=== PATIENT | female | born 1980 | race Caucasian/White ===

== ENCOUNTER 2018-02-02 09:16 | Emergency (ER) | payer OTHER ==
[2018-02-02 09:26] VITALS: BMI 34.7
--- NOTE | 2018-02-02 09:37 | PDOC ---
History of Present Illness - General Chief Complaint: Vaginal Bleeding Stated Complaint: VAGINAL BLEEDING (6 WKS ) Time Seen by Provider: 02/02/18 09:31 History Source: Patient Exam Limitations: Language Barrier - History of Present Illness Initial Comments: 02/02/18 10:07 37 year old yi speaking female A1, GA 6 weeks and 3 , presented to the ED with 2 days history of vaginal bleeding. she notice some bloody streak first time yesterday when she was cleaning herself, today morning when she pass urine she noticed blood mixed with urine, redish color with one clot. Patient denies any active bleeding at the moment. Patient states that she was unaware that she was until last week. She went to the doctor and had a positive test. Patient reports that her LMP was 12/18/17. Patient states she was not seen by an makeup instructor doctor yet. Patient denies any dysuria, flank pain, odor in urine, history of kidney stones, trauma to the uterus, recent intercourse or abnormal vaginal discharge. Patient denies any history of STI. Patient states she had one spontaneous at 4 week gestation. Previous pregnancies were without any complications. Patient reports one prior c -section. Patient denies f/c/, she reported nausea but denied vomiting. Patient denies lightheadedness or dizziness, headache, but she reports generalized fatigue. Denies chest pain, SOB, palpitations, abdominal pain, diarrhea, constipation, leg swelling. Pmhx: Denies Pshx: 1 , umbilical hernia repair Allergy: NKDA Meds: vitamins, iron Sohx: denies tobacco use, alcohol or drug use Fhx: DM Vitals: Temp: 98.4F, DE: 112, BP: 164/91, RR: 16, O2 Sat: 100% Physical Exam: General: Well appearing, in NAD Head: AT/NC ENT: MMM, PERRL, EOMI, no septal deviation, no lesions or exudates in oropharynx Neck: no cervical lymphadenopathy, neck supple Heart: Tachycardic, no MRG Lungs: CTA B/L, no wheezes Abdomen: Gestation abdomen, soft, ND/NT, positive BS, old scar present in the lower abdomen Neuro: no focal deficits, CN II-XII grossly intact, normal speech Psych: normal mood and affect Ski: warm and dry Pelvic exam: closed cervical os with a 5mm spot of clot around the os, no vaginal discharge, no cervical motion tenderness Differential: * Normal * first trimester miscarriage * Ectopic * Kidney stone * UTI Workup: * CBC, CMp, UA, beta HCG, type and screen * will consider transvaginal US after beta HCG * IV NS 125 cc 02/02/18 15:06 US transvaginal: An intrauterine gestational sac is seen containing a yolk sac. The gestational sac diameter corresponds to an approximate gestational age of 5 weeks 0 days. No embryonic pole is identified at this time probably on the basis of early . Correlate with follow-up sonography. Patient is hemodynamically stable. She will follow up as outpatient with her OB/ Environmental Field Team Member. Patient also has the option to return to the ED to repeat beta HCG and transvaginal US on Tuesday. _ Past History - Past Medical History Allergies/Adverse Reactions: Allergies Allergy/AdvReac Type Severity Reaction Status Date / Time No Known Allergies Allergy Verified 02/02/18 09:21 Home Medications: Ambulatory Orders NK [No Known Home Medication] 02/02/18 COPD: No Other medical history: DENIES. - Suicide/Smoking/Psychosocial Hx Smoking History: Never smoked *Physical Exam - Vital Signs Last Vital Signs Temp Pulse Resp BP Pulse Ox 98.4 F 112 H 16 164/91 100 02/02/18 09:22 02/02/18 09:22 02/02/18 09:22 02/02/18 09:22 02/02/18 09:22 ED Treatment Course - LABORATORY CBC & Chemistry Diagram: 02/02/18 10:30 *DC/Admit/Observation/Transfer Diagnosis at time of Disposition: Normal in first trimester - Discharge Dispostion Disposition: HOME Admit: No Decision to Admit order Date/Time: Patient is hemodynamically stable. She will follow up as outpatient with her OB/ CAMERA SYSTEMS ENGINEER. Patient also has the option to return to the ED to repeat beta HCG and transvaginal US on Tuesday if she is unable to get an appointment with an OB/ CAMERA SYSTEMS ENGINEER for Tuesday. The plan was explained to the patient and patient understands and agrees with the plan. If symptoms worsen, please return to the emergency department immediately. 02/02/18 15:08 - Referrals - Patient Instructions - Post Discharge Activity
[2018-02-02 10:22] LABS: HCG,QUALITATIVE URINE POSITIVE
[2018-02-02 10:27] LABS: URINE APPEARANCE SLCLOUDY; URINE BILIRUBIN NEGATIVE (<2.0 mg/dL); URINE BLOOD 3+ (NEGATIVE); URINE COLOR YELLOW; URINE GLUCOSE (UA) NEGATIVE (NEGATIVE); URINE KETONE NEGATIVE (NEGATIVE); URINE LEUK ESTERASE NEGATIVE (NEGATIVE); URINE NITRITE NEGATIVE (NEGATIVE); URINE PROTEIN NEGATIVE (NEGATIVE); URINE UROBILINOGEN NEGATIVE mg/dL (0.2-1.0)
[2018-02-02 10:51] LABS: EPI CELLS MODERATE /HPF (FEW); URINE MUCUS RARE
[2018-02-02 10:58] LABS: BASO % 0.7 % (0-2.0); EOS % 0.7 % (0-4.5); HEMATOCRIT 39.7 % (32.4-45.2); HEMOGLOBIN 13.3 GM/dL (10.7-15.3); LYMPH % 32.4 % (8-40); MCHC 33.4 g/dl (32.0-36.0); MEAN CELL VOLUME 86.8 fl (80-96); MEAN PLT VOLUME 8.1 fl (7.5-11.1); MONO % 3.9 % (3.8-10.2); NEUT % 62.3 % (42.8-82.8); PLATELET COUNT 256 K/MM3 (134-434); RBC 4.58 M/mm3 (3.60-5.2); RDW 13.8 % (11.6-15.6); WHITE BLOOD COUNT 6.5 K/mm3 (4.0-10.0)
[2018-02-02] MEDS ORDERED: SODIUM CHLORIDE 1,000 ML IV SCH (11:00)
[2018-02-02 11:37] LABS: INR 0.99 (0.82-1.09); PROTHROMBIN TIME (PATIENT) 11.2 SEC (9.98-11.88)
--- NOTE | 2018-02-02 11:39 | PDOC ---
Attending Attestation - Resident Resident Name: Tobin Barnes - ED Attending Attestation I have performed the following: I have examined & evaluated the patient, The case was reviewed & discussed with the resident, I agree w/resident's findings & plan, Exceptions are as noted - HPI HPI: 02/02/18 11:31 37-year-old LMP about 6 weeks with positive test at clinic last week presents now with 2 episodes of vaginal bleeding over the last 2 days. Patient reports blood on toilet paper after urinating each morning yesterday and today, today with small clots. No cramping, no passage of tissue, no dysuria /frequency/urgency, no fevers or chills. - Physicial Exam PE: 02/02/18 11:39 Vital signs normal. Heart rate improved at 90 lying in stretcher. Abdomen benign. Os closed with minimal blood in vault per resident - Medical Decision Making 02/02/18 11:39 Patient seen and evaluated with the resident. I agree with the overall evaluation, assessment, and management with the following summary of visit: 37-year-old female with first trimester vaginal bleeding, early versus threatened miscarriage versus ectopic. Rh, hCG, urinalysis Transvaginal ultrasound Reassess, including repeat BP 02/02/18 14:50 gest sac, yolk sac, but no pole identified. ? early preg given hcg 4000s. rh+ no further bleeding. will arrange prompt OB f/u or return to ED for repeat hcg and sono
[2018-02-02 15:46] VITALS: BP 130/72; PULSE 92; TEMP 98.5
== END 2018-02-02 16:32 | disposition home or self-care (01) ==
LOC: EDBD 09:16 → JER 09:16
PROC: 3E0337Z Introduction of Electrolytic and Water Balance Substance into Peripheral Vein, Percutaneous Approach (ICD-10-PCS; principal; 2018-02-02)
DX: O26.891 Other specified pregnancy related conditions, first trimester (principal); O20.8 Other hemorrhage in early pregnancy; Z3A.01 Less than 8 weeks gestation of pregnancy
CPT/HCPCS: 36415; 76817-TC; 81003; 81015; 84702; 84703; 85025; 85610; 86850; 86900; 86901; 99282-25; J7030

== ENCOUNTER 2018-03-28 07:43 | Emergency (ER) | payer OTHER ==
[2018-03-28] MEDS ORDERED: SODIUM CHLORIDE 1,000 ML IV STA (08:16)
[2018-03-28 08:19] VITALS: TEMP 99; BMI 41.1
--- NOTE | 2018-03-28 08:30 | PDOC ---
History of Present Illness - General Chief Complaint: Vaginal Bleeding Stated Complaint: VAGINAL BLEED Time Seen by Provider: 03/28/18 07:53 History Source: Patient - History of Present Illness Timing/Duration: reports: getting worse Past History - Past Medical History Allergies/Adverse Reactions: Allergies Allergy/AdvReac Type Severity Reaction Status Date / Time No Known Allergies Allergy Verified 03/28/18 08:15 Home Medications: Ambulatory Orders 54/Iron/Folic AC/Omg3 [Pr Nanci 430 Combo Pack] 1 each PO DAILY #30 combo..pkg 02/02/18 COPD: No - Suicide/Smoking/Psychosocial Hx Smoking History: Never smoked Review of Systems - Review of Systems Constitutional: No: Chills, Fever ABD/GI: No: Nausea, Vomiting, Abdominal cramping : No: Dysuria *Physical Exam - Physical Exam General Appearance: Yes: Appropriately Dressed. No: Apparent Distress HEENT: positive: Normal Voice Neck: positive: Supple Respiratory/Chest: negative: Respiratory Distress Female Pelvic Exam: positive: vaginal bleeding, other (significant vaginal bleeding w/ large clots, unable to palpate os) Gastrointestinal/Abdominal: positive: Soft. negative: Tender Musculoskeletal: negative: CVA Tenderness Integumentary: positive: Dry, Warm Neurologic: positive: Fully Oriented, Alert, Normal Mood/Affect ED Treatment Course - LABORATORY CBC & Chemistry Diagram: 03/28/18 14:17 03/28/18 09:00 - RADIOLOGY Radiology Studies Ordered: Category Date Time Status TRANSVAGINAL US PREG [US] Stat Ultrasound 03/28/18 08:16 Ordered Medical Decision Making - Medical Decision Making 03/28/18 08:17 37 yo F, (s/p 1 spon ab), ~13 weeks , here w/ sudden onset severe vaginal bleeding this am. No clots, abd pain, dysuria, n/v See exam Strong suspicion for spon AB Tachy to 120 w/ significant vag bleed w/ multiple large clots in vault, unable to palpate Os S/p US here 02/02 w/ IUP @ 5 weeks w/ beta 4608 -IVF -beta -UA -labs -US 03/28/18 12:55 UA without signs of infection with beta over 37,000. Ultrasound demonstrates approximately 14 weeks fetus with cardiac activity. Repeat heart rate after fluids normalized. Dr. Max contacted and now at bedside 03/28/18 13:[address] Max man who states it appears that patient's vag bleed has currently resolved and that he was able to feel a closed Os. Recommend repeat CBC and if stable and bleeding ceases, can be discharged to follow-up with her OB this week 03/28/18 15:09 03/28/18 15:16 Pt's hemoglobin stable upon rpt. Upon reassessment, no bleeding at this time and is stable. Patient feels well enough to be discharged. Told to follow up with OB this week and to return to ER if symptoms worsen 03/28/18 15:18 *DC/Admit/Observation/Transfer Diagnosis at time of Disposition: Threatened - Discharge Dispostion Disposition: HOME Condition at time of disposition: Improved - Referrals - Patient Instructions Printed Discharge Instructions: DI for Threatened Additional Instructions: Beebe ultrasonido muestra que beebe feto tiene aproximadamente 14 semanas con actividad cardaca. Tu beta superaba los 37,000 hoy. Tu helen y tu orina fozia normales. Usted fue visto por un gineclogo, el Dr. Mansoor calderon, quien lo evalu y le recomend que, dado que la hemorragia mejor, puede ser dado de ammy para realizar un seguimiento con beebe OB esta semana. Existe la posibilidad de que sufra un aborto espontneo si contina sangrando y si el nivel de la hormona en la helen disminuye. Debe llamar a beebe OB hoy mismo para programar pineda linda y ser visto esta semana para pineda evaluacin repetida Mientras tanto, la recomendacin es para descansar un poco, tiffany est aziza levantarse y caminar y hacer la mayora de leo actividades habituales, tiffany sin relaciones sexuales, esfuerzo fsico, actividad vigorosa o levantar objetos pesados hasta que anjel beebe OB. Regrese a la jacquie de emergencias si los sntomas empeoran Print Language: [id number] - Post Discharge Activity
[2018-03-28 09:19] VITALS: PULSE 90
[2018-03-28 09:22] LABS: BASO % 0.2 % (0-2.0); EOS % 0.4 % (0-4.5); HEMATOCRIT 34.5 % (32.4-45.2); HEMOGLOBIN 11.6 GM/dL (10.7-15.3); LYMPH % 17.9 % (8-40); MCH 29.2 pg (25.7-33.7); MCHC 33.8 g/dl (32.0-36.0); MEAN CELL VOLUME 86.5 fl (80-96); MEAN PLT VOLUME 8.3 fl (7.5-11.1); MONO % 5.2 % (3.8-10.2); NEUT % 76.3 % (42.8-82.8); PLATELET COUNT 237 K/MM3 (134-434); RBC 3.99 M/mm3 (3.60-5.2); RDW 13.9 % (11.6-15.6); WHITE BLOOD COUNT 7.3 K/mm3 (4.0-10.0)
[2018-03-28 09:33] LABS: ALBUMIN 3.4 g/dl (3.4-5.0); ANION GAP 7 (8-16); BILIRUBIN,TOTAL 0.3 mg/dL (0.2-1.0); BLOOD UREA NITROGEN 7 mg/dL (7-18); CALCIUM 8.2 mg/dL (8.5-10.1); CHLORIDE 109 mmol/L (98-107); CO2 24 mmol/L (21-32); CREATININE 0.6 mg/dL (0.55-1.02); GLUCOSE,RANDOM 112 mg/dL (74-106); POTASSIUM 3.8 mmol/L (3.5-5.1); SGOT/AST 16 U/L (15-37); SGPT/ALT 20 U/L (12-78); SODIUM 140 mmol/L (136-145); TOT PROT 6.9 g/dl (6.4-8.2)
[2018-03-28 09:41] LABS: URINE APPEARANCE CLOUDY; URINE BILIRUBIN NEGATIVE (<2.0 mg/dL); URINE BLOOD 3+ (NEGATIVE); URINE COLOR RED; URINE GLUCOSE (UA) 1+ (NEGATIVE); URINE KETONE TRACE (NEGATIVE); URINE LEUK ESTERASE NEGATIVE (NEGATIVE); URINE NITRITE NEGATIVE (NEGATIVE); URINE UROBILINOGEN NEGATIVE mg/dL (0.2-1.0)
[2018-03-28 09:50] LABS: URINE PROTEIN 2+ (NEGATIVE)
[2018-03-28 09:50] LABS: ALK PHOS 58 U/L (45-117)
[2018-03-28 09:52] LABS: INR 1.02 (0.82-1.09); PROTHROMBIN TIME (PATIENT) 11.5 SEC (9.7-13.0)
[2018-03-28 09:55] LABS: URINE MUCUS RARE
[2018-03-28 12:31] VITALS: BP 121/39
[2018-03-28 14:23] LABS: BASO % 0.5 % (0-2.0); EOS % 0.2 % (0-4.5); HEMATOCRIT 31.1 % (32.4-45.2); HEMOGLOBIN 10.6 GM/dL (10.7-15.3); LYMPH % 24.2 % (8-40); MCH 29.2 pg (25.7-33.7); MCHC 33.9 g/dl (32.0-36.0); MEAN CELL VOLUME 86.2 fl (80-96); MEAN PLT VOLUME 7.9 fl (7.5-11.1); MONO % 5.4 % (3.8-10.2); NEUT % 69.7 % (42.8-82.8); PLATELET COUNT 247 K/MM3 (134-434); RBC 3.61 M/mm3 (3.60-5.2); WHITE BLOOD COUNT 6.1 K/mm3 (4.0-10.0)
== END 2018-03-28 15:40 | disposition home or self-care (01) ==
LOC: JER 07:43
PROC: 3E0337Z Introduction of Electrolytic and Water Balance Substance into Peripheral Vein, Percutaneous Approach (ICD-10-PCS; principal; 2018-03-28)
DX: O26.892 Other specified pregnancy related conditions, second trimester (principal); O20.0 Threatened abortion; Z3A.14 14 weeks gestation of pregnancy
CPT/HCPCS: 36415; 76815-TC; 76817-TC; 80053; 81003; 81015; 84702; 85025; 85610; 86850; 86900; 86901; 96360; 99283-25; J7030

== ENCOUNTER 2018-04-04 16:04 | Emergency (ER) | payer OTHER ==
[2018-04-04 16:11] VITALS: BP 142/79; PULSE 110; TEMP 98; BMI 40.4
--- NOTE | 2018-04-04 16:12 | PDOC ---
Rapid Medical Evaluation Time Seen by Provider: 04/04/18 16:06 Medical Evaluation: Allergies Allergy/AdvReac Type Severity Reaction Status Date / Time No Known Allergies Allergy Verified 03/28/18 08:15 04/04/18 16:09 Pt. a 37 y/o F with 8 days of vaginal bleeding. Pt. evaluated one week ago in our ED for similar complaints. States that the bleeding has not stopped over the past 8 days. States that she has a fair amount of bleeding. Type and screen from last visit O positive. Exam: ambulatory, NAD. Orders, CBC, CMP, beta hcg, pt/inr, US
[2018-04-04 17:48] LABS: BASO % 0.3 % (0-2.0); EOS % 0.2 % (0-4.5); HEMOGLOBIN 11.5 GM/dL (10.7-15.3); LYMPH % 17.5 % (8-40); MCH 29.5 pg (25.7-33.7); MCHC 33.9 g/dl (32.0-36.0); MEAN CELL VOLUME 86.8 fl (80-96); MEAN PLT VOLUME 8.4 fl (7.5-11.1); MONO % 4.8 % (3.8-10.2); NEUT % 77.2 % (42.8-82.8); PLATELET COUNT 279 K/MM3 (134-434); RBC 3.92 M/mm3 (3.60-5.2); RDW 14.1 % (11.6-15.6); WHITE BLOOD COUNT 9.4 K/mm3 (4.0-10.0)
[2018-04-04 17:50] LABS: URINE APPEARANCE SLCLOUDY; URINE BILIRUBIN NEGATIVE (<2.0 mg/dL); URINE COLOR YELLOW; URINE GLUCOSE (UA) NEGATIVE (NEGATIVE); URINE KETONE 2+ (NEGATIVE); URINE NITRITE NEGATIVE (NEGATIVE); URINE UROBILINOGEN NEGATIVE mg/dL (0.2-1.0)
[2018-04-04 17:52] LABS: URINE LEUK ESTERASE 2+ (NEGATIVE); URINE PROTEIN 1+ (NEGATIVE)
[2018-04-04 17:54] LABS: EPI CELLS MODERATE /HPF (FEW); URINE MUCUS RARE
[2018-04-04 18:14] LABS: ALBUMIN 3.5 g/dl (3.4-5.0); ALK PHOS 73 U/L (45-117); ANION GAP 8 (8-16); BILIRUBIN,TOTAL 0.2 mg/dL (0.2-1.0); BLOOD UREA NITROGEN 5 mg/dL (7-18); CALCIUM 8.6 mg/dL (8.5-10.1); CHLORIDE 108 mmol/L (98-107); CO2 22 mmol/L (21-32); CREATININE 0.5 mg/dL (0.55-1.02); GLUCOSE,RANDOM 83 mg/dL (74-106); POTASSIUM 3.7 mmol/L (3.5-5.1); SGOT/AST 18 U/L (15-37); SGPT/ALT 23 U/L (12-78); SODIUM 138 mmol/L (136-145); TOT PROT 7.8 g/dl (6.4-8.2)
--- NOTE | 2018-04-04 21:48 | PDOC ---
History of Present Illness - General History Source: Patient Exam Limitations: No Limitations <Cary Hahn - Last Filed: 04/04/18 23:34> - History of Present Illness Initial Comments: 04/04/18 23:47 Patient is a 37 year old Luxembourger-speaking female , who presents with 1 week of vaginal bleeding. She states that her vaginal bleeding was very heavy last Tuesday, but she states that it has since lessened and there is some spotting when she wipes. She also admits to some lower abdominal pressure. Scant blood in vaginal vault, No heavy active bleeding, Cervical Os closed. OB: Vandana Ridley ([address]) <Mile Groves - Last Filed: 04/04/18 23:52> - General Chief Complaint: Vaginal Bleeding Stated Complaint: VAGINAL BLEEDING (15 WKS ) Time Seen by Provider: 04/04/18 16:06 Past History - Past Medical History COPD: No DVT: No - Reproductive History (#): 5 Para: 5 - Suicide/Smoking/Psychosocial Hx Smoking History: Never smoked Have you smoked in the past 12 months: No Information on smoking cessation initiated: No Hx Alcohol Use: No Drug/Substance Use Hx: No Substance Use Type: None <Cary Hahn - Last Filed: 04/04/18 23:34> <Mile Groves - Last Filed: 04/04/18 23:52> - Past Medical History Allergies/Adverse Reactions: Allergies Allergy/AdvReac Type Severity Reaction Status Date / Time No Known Allergies Allergy Verified 04/04/18 16:07 Home Medications: Ambulatory Orders 54/Iron/Folic AC/Omg3 [Pr Nanci 430 Combo Pack] 1 each PO DAILY #30 combo..pkg 02/02/18 Cephalexin [Keflex] 500 mg PO BID #10 capsule 04/04/18 Review of Systems - Review of Systems Comments:: GENERAL/CONSTITUTIONAL: No: fever, chills, weakness, loss of appetite. HEAD, EYES, EARS, NOSE AND THROAT: No: change in vision, ear pain, discharge, sore throat, throat swelling. CARDIOVASCULAR: No: chest pain, lightheadedness, palpitations, syncope RESPIRATORY: No: cough, shortness of breath, wheezing, hemoptysis, stridor. GASTROINTESTINAL: +mild lower abdominal pain No: nausea, vomiting, diarrhea, rectal bleeding, constipation. GENITOURINARY: No: dysuria, hematuria, frequency, urgency, flank pain. GYNECOLOGICAL: vaginal bleeding MUSCULOSKELETAL: No: back pain, neck pain, joint pain, muscle swelling or pain SKIN: No: lesions, pallor, rash or easy bruising. NEUROLOGIC: No: headache, vertigo, paresthesias, weakness ENDOCRINE: No: unexplained weight gain or loss HEMATOLOGIC/LYMPHATIC: No: anemia, easy bleeding, swelling nodes 04/04/18 23:50 <Mile Groves - Last Filed: 04/04/18 23:52> *Physical Exam - Vital Signs Last Vital Signs Temp Pulse Resp BP Pulse Ox 98.0 F 110 H 18 142/79 100 04/04/18 16:07 04/04/18 16:07 04/04/18 16:07 04/04/18 16:07 04/04/18 16:07 <Cary Hahn - Last Filed: 04/04/18 23:34> - Vital Signs Last Vital Signs Temp Pulse Resp BP Pulse Ox 98.0 F 110 H 18 142/79 100 04/04/18 16:07 04/04/18 16:07 04/04/18 16:07 04/04/18 16:07 04/04/18 16:07 - Physical Exam Comments: 04/04/18 23:50 GENERAL: The patient is in no acute distress. HEAD: Normal with no signs of trauma. EYES: PERRLA, EOMI, sclera anicteric, conjunctiva clear. ENT: Ears normal, nares patent, oropharynx clear without exudates. Moist mucous membranes. NECK: Normal range of motion, supple without lymphadenopathy, JVD, or masses. LUNGS: Breath sounds equal, clear to auscultation bilaterally. No wheezes, and no crackles. HEART:Regular rate and rhythm, normal S1 and S2 without murmur, rub or gallop. ABDOMEN: Soft, mild lower abdominal tenderness to palpation, normoactive bowel sounds. No guarding, no rebound. EXTREMITIES: Normal range of motion, no edema. No clubbing or cyanosis. No erythema, or tenderness. NEUROLOGICAL: Cranial nerves II through XII grossly intact. Normal speech. No focal neurological deficits. MUSCULOSKELETAL: Back nontender to palpation, no CVA tenderness SKIN: Warm, Dry, normal turgor, no rashes or lesions noted. Pelvic Exam: Scant blood in vaginal vault, No heavy active bleeding, Cervical Os closed. <Mile Groves - Last Filed: 04/04/18 23:52> ED Treatment Course - LABORATORY CBC & Chemistry Diagram: 04/04/18 17:26 04/04/18 17:26 - ADDITIONAL ORDERS Additional order review: Laboratory Results 04/04/18 04/04/18 04/04/18 17:40 17:28 17:26 Sodium 138 Potassium 3.7 Chloride 108 H Carbon Dioxide 22 Anion Gap 8 BUN 5 L Creatinine 0.5 L Creat Clearance w eGFR > 60 Random Glucose 83 Calcium 8.6 Total Bilirubin 0.2 D AST 18 ALT 23 Alkaline Phosphatase 73 Total Protein 7.8 Albumin 3.5 Beta HCG, Quant 43977.8 Urine Color Yellow Urine Appearance Slcloudy Urine pH 6.0 Ur Specific [place] 1.018 Urine Protein 1+ H Urine Glucose (UA) Negative Urine Ketones 2+ H Urine Blood 3+ H Urine Nitrite Negative Urine Bilirubin Negative Urine Urobilinogen Negative Ur Leukocyte Esterase 2+ H Urine WBC (Auto) 53 Urine RBC (Auto) 14 Ur Epithelial Cells Moderate Urine Mucus Rare 04/04/18 17:26 RBC 3.92 MCV 86.8 MCHC 33.9 RDW 14.1 MPV 8.4 Neutrophils % 77.2 Lymphocytes % 17.5 D Monocytes % 4.8 Eosinophils % 0.2 Basophils % 0.3 <Cary Hahn - Last Filed: 04/04/18 23:34> - LABORATORY CBC & Chemistry Diagram: 04/04/18 17:26 04/04/18 17:26 - ADDITIONAL ORDERS Additional order review: Laboratory Results 04/04/18 04/04/18 04/04/18 17:40 17:28 17:26 Sodium 138 Potassium 3.7 Chloride 108 H Carbon Dioxide 22 Anion Gap 8 BUN 5 L Creatinine 0.5 L Creat Clearance w eGFR > 60 Random Glucose 83 Calcium 8.6 Total Bilirubin 0.2 D AST 18 ALT 23 Alkaline Phosphatase 73 Total Protein 7.8 Albumin 3.5 Beta HCG, Quant 39230.8 Urine Color Yellow Urine Appearance Slcloudy Urine pH 6.0 Ur Specific [place] 1.018 Urine Protein 1+ H Urine Glucose (UA) Negative Urine Ketones 2+ H Urine Blood 3+ H Urine Nitrite Negative Urine Bilirubin Negative Urine Urobilinogen Negative Ur Leukocyte Esterase 2+ H Urine WBC (Auto) 53 Urine RBC (Auto) 14 Ur Epithelial Cells Moderate Urine Mucus Rare 04/04/18 17:26 RBC 3.92 MCV 86.8 MCHC 33.9 RDW 14.1 MPV 8.4 Neutrophils % 77.2 Lymphocytes % 17.5 D Monocytes % 4.8 Eosinophils % 0.2 Basophils % 0.3 <Mile Groves - Last Filed: 04/04/18 23:52> Medical Decision Making - Medical Decision Making Ms Tuesday is a 37 yo F LMP about 7 weeks with continued vaginal bleeding No cramping, no passage of tissue, no dysuria/frequency/urgency, no fevers or chills. 04/04/18 21:49 Laboratory Tests 03/28/18 03/28/18 04/04/18 09:00 14:17 17:26 WBC 6.1 9.4 D Hgb 10.6 L 11.5 Hct 31.1 L 34.0 Plt Count 247 279 BUN 7 Creatinine 0.6 Beta HCG, Quant 24921.0 Urine Blood Urine Nitrite Ur Leukocyte Esterase Urine WBC (Auto) Urine RBC (Auto) Ur Epithelial Cells Urine Mucus 04/04/18 04/04/18 04/04/18 17:26 17:28 17:40 WBC Hgb Hct Plt Count BUN 5 L Creatinine 0.5 L Beta HCG, Quant 21565.8 Urine Blood 3+ H Urine Nitrite Negative Ur Leukocyte Esterase 2+ H Urine WBC (Auto) 53 Urine RBC (Auto) 14 Ur Epithelial Cells Moderate Urine Mucus Rare 04/04/18 21:50 Hgb stable BHCG rising US ? (+) Pending US 04/04/18 23:35 Ultrasound demonstrates complete placenta previa. Patient's pelvic examination demonstrates no active heavy bleeding, no active bleeding from the os, there is scant blood noted in the vaginal vault. Patient has minimal lower abdominal tenderness to palpation. Case reviewed with Dr. Lopez. She recommends the following: Pelvic rest, no heavy lifting, bed rest, return to the emergency department for heavy bleeding-saturating 2 pads per hour for 2 hours. She will need to follow up with the clinic where she should have ultrasound every month. <Cary Hahn - Last Filed: 04/04/18 23:34> *DC/Admit/Observation/Transfer - Discharge Dispostion Decision to Admit order: No <Cary Hahn - Last Filed: 04/04/18 23:34> - Attestations Scribe Attestion: 04/04/18 23:52 Documentation prepared by Mile Groves, acting as biomedical engineering director for Cary Hahn MD. <Mile Groves - Last Filed: 04/04/18 23:52> Diagnosis at time of Disposition: Placenta previa Qualifiers: Trimester: second trimester Qualified Code(s): O44.02 - Complete placenta previa NOS or without hemorrhage, second trimester UTI (urinary tract infection) Qualifiers: Urinary tract infection type: acute cystitis Hematuria presence: without hematuria Qualified Code(s): N30.00 - Acute cystitis without hematuria - Discharge Dispostion Disposition: HOME Condition at time of disposition: Stable - Prescriptions Prescriptions: Cephalexin [Keflex] 500 mg PO BID #10 capsule - Referrals Referrals: Vandana Ridley MD [Primary Care Provider] - - Patient Instructions Printed Discharge Instructions: DI for Placenta Previa Additional Instructions: Ms Tuesday Dennis por venir a la jacquie de emergencia hoy se le aconseja evitar las relaciones sexuales hasta que sea aprobado por beebe obstetra SIN levantar objetos pesados, nada ms pesado que 5 libras Contina teniendo manchas, tiffany si nota sangrado PESADO (SATURANDO 2 ALMOHADILLAS / HORA x 2 HORAS) DEBE regresar a la jacquie de urgencias de inmediato Debe llamar a beebe obstetra por la maana para pineda linda URGENTE Tendr que ser seguido de cerca por ultrasonidos repetidos Thank you for coming in to the ER today you are advised to avoid sexual intercourse until cleared by your Criminalist NO heavy lifting, nothin heavier than 5 pounds You continue to have spotting, but if you notice HEAVY bleeding (SATURATING 2 PADS/HOUR x 2 HOURS) you MUST return to the ER IMMEDIATELY You must call your Criminalist in the morning for an URGENT appointment You will need to be followed closely by repeat ultrasounds - Post Discharge Activity
== END 2018-04-05 00:10 | disposition home or self-care (01) ==
LOC: JER 16:04
DX: O26.892 Other specified pregnancy related conditions, second trimester (principal); O44.02 Complete placenta previa NOS or without hemorrhage, second trimester; O23.12 Infections of bladder in pregnancy, second trimester; N30.90 Cystitis, unspecified without hematuria; Z3A.15 15 weeks gestation of pregnancy
CPT/HCPCS: 36415; 76801-TC; 76817-TC; 80053; 81003; 81015; 84702; 85025; 99281-25

== ENCOUNTER 2018-04-09 09:24 | Emergency (ER) | payer OTHER ==
[2018-04-09 09:51] VITALS: TEMP 98.5; BMI 31.1
--- NOTE | 2018-04-09 10:03 | PDOC ---
Attending Attestation - HPI HPI: 04/09/18 10:15 Patient is 37 year old Ethiopian-speaking female , who was transferred from [facility] s/p spontaneous .Patient was transferred from [facility] and delivered at 16 weeks. She was seen here in the ED 5 days ago, where ultrasound results revealed that she was found to have placenta previa. She denies any current pain. OB: Vandana Ridley ([address]) 04/09/18 12:52 04/09/18 12:53 - Physicial Exam PE: GENERAL: Awake, alert, and fully oriented, in no acute distress EYES: PERRLA, EOMI, sclera anicteric, conjunctiva clear NECK: Normal ROM, supple, no lymphadenopathy, JVD, or masses LUNGS: Breath sounds equal, clear to auscultation bilaterally. No wheezes, and no crackles HEART: Regular rate and rhythm, normal S1 and S2, no murmurs, rubs or gallops ABDOMEN: Soft, suprapubic tenderness. No guarding, no rebound. No masses EXTREMITIES: Normal range of motion, no edema. No clubbing or cyanosis. No cords, erythema, or tenderness NEUROLOGICAL: Normal speech SKIN: Warm, Dry, normal turgor, no rashes or lesions noted. External exam performed- visible umbilical cord, no active bleeding. Intrapelvic exam deferred due to known history of previa. 04/09/18 10:15 <Mile Groves - Last Filed: 04/09/18 12:53> - Resident Resident Name: Jamshid Tobar - ED Attending Attestation I have performed the following: I have examined & evaluated the patient, The case was reviewed & discussed with the resident, I agree w/resident's findings & plan, Exceptions are as noted - Medical Decision Making 04/09/18 11:25 37-year-old status post miscarriage of a 16 week fetus approximately 1 hour ago here with retained placenta. Differential is delayed placenta delivery versus placenta accreta will discuss with Dr. Gonzales in obstetrics. Patient will see patient in the ED. Plan for Pitocin drip expectant management was sent if prolonged we will consider OR for D&C 04/09/18 14:03 pt passed placenta in id on pitocin. bleeding slowing. repeat evaluation by dr. Gonzales. pt is O positive. will dc home followup outpatient. <Riri Spivey - Last Filed: 04/09/18 14:04>
--- NOTE | 2018-04-09 10:03 | PDOC ---
History of Present Illness - General Chief Complaint: Vaginal Bleeding Stated Complaint: MISCARRIAGE Time Seen by Provider: 04/09/18 09:50 - History of Present Illness Initial Comments: Patient is a 37 year old female [id number], with no pmh, who presents to the emergency department after miscarriage one week ago, seen at [facility] today for retained placenta previa. Pt with one week of vaginal bleeding prior to miscarriage one week ago and was seen at [facility] after spontaneous of fetus. Since then, pt endorses trace residual bleeding and presented to [facility] again today, with imaging notable for retained placenta previa. Pt with one prior elective and 3 living children. No other noted obstetrical conditions. The patient denies chest pain, shortness of breath, headache or dizziness. Denies fever, chills, nausea, vomiting, diarrhea and constipation. Denies dysuria, frequency, urgency and hematuria. Allergies: None Past surgical history: x1 Social History: Denies smoking, alcohol or drug use PMD: Nicci Ridley 04/09/18 10:15 Past History - Past Medical History Allergies/Adverse Reactions: Allergies Allergy/AdvReac Type Severity Reaction Status Date / Time No Known Allergies Allergy Verified 04/04/18 16:07 Home Medications: Ambulatory Orders 54/Iron/Folic AC/Omg3 [Pr Nanci 430 Combo Pack] 1 each PO DAILY #30 combo..pkg 02/02/18 Cephalexin [Keflex] 500 mg PO BID #10 capsule 04/04/18 COPD: No DVT: No - Reproductive History (#): 5 Para: 5 - Suicide/Smoking/Psychosocial Hx Smoking History: Never smoked Have you smoked in the past 12 months: No Information on smoking cessation initiated: No Hx Alcohol Use: No Drug/Substance Use Hx: No Substance Use Type: None Review of Systems - Review of Systems Able to Perform ROS?: Yes Comments:: GENERAL/CONSTITUTIONAL: No fever or chills. No weakness. HEAD, EYES, EARS, NOSE AND THROAT: No change in vision. No ear pain or discharge. No sore throat. CARDIOVASCULAR: No chest pain or shortness of breath RESPIRATORY: No cough, wheezing, or hemoptysis. GASTROINTESTINAL: No nausea, vomiting, diarrhea or constipation. GENITOURINARY: +vaginal bleeding, lower abdominal pain; No dysuria, frequency, or change in urination. MUSCULOSKELETAL: No joint or muscle swelling or pain. No neck or back pain. SKIN: No rash NEUROLOGIC: No headache, vertigo, loss of consciousness, or change in strength/ sensation. ENDOCRINE: No increased thirst. No abnormal weight change HEMATOLOGIC/LYMPHATIC: No anemia, easy bleeding, or history of blood clots. ALLERGIC/IMMUNOLOGIC: No hives or skin allergy. 04/09/18 10:27 *Physical Exam - Vital Signs Last Vital Signs Temp Pulse Resp BP Pulse Ox 98.5 F 114 H 20 138/90 100 04/09/18 09:35 04/09/18 09:35 04/09/18 09:35 04/09/18 09:35 04/09/18 09:35 - Physical Exam Comments: GENERAL: MA woman, Awake, alert, and fully oriented, in no acute distress, obese HEAD: No signs of trauma, normocephalic, atraumatic EYES: PERRLA, EOMI, sclera anicteric, conjunctiva clear ENT: Auricles normal inspection, hearing grossly normal, nares patent, oropharynx clear without exudates. Moist mucosa NECK: Normal ROM, supple, no lymphadenopathy, JVD, or masses LUNGS: No distress, speaks full sentences, clear to auscultation bilaterally HEART: Regular rate and rhythm, normal S1 and S2, no murmurs, rubs or gallops, peripheral pulses normal and equal bilaterally. ABDOMEN: Soft, nontender, normoactive bowel sounds. No guarding, no rebound. No masses EXTREMITIES : Normal inspection, Normal range of motion, no edema. No clubbing or cyanosis. SENIOR STRATEGY MANAGER: Dried blood, severed umbilical cord noted at vaginal introitus. External exam with no other abnormalities. Bimanual/internal exam deferred secondary to findings. NEUROLOGICAL: Cranial nerves II through XII grossly intact. Normal speech, normal gait, no focal sensorimotor deficits SKIN: Warm, Dry, normal turgor, no rashes or lesions noted 04/09/18 10:52 Medical Decision Making - Medical Decision Making Patient is a 37 year old female [id number], with no pmh, who presents to the emergency department after miscarriage one week ago, seen at [facility] today for retained placenta previa. Pt with retained placenta previa noted on imaging at [facility] with failure to pass over last week. Plan: - Labs performed at [facility] pain control - C S S REPRESENTATIVE consulted; Per Dr. Gonzales, will begin pitocin gtt with expected mobilization of contents within 4 hours; will remain in ED during this period; If remains retained, will transfer to L+D 04/09/18 10:54 Pt with passage of placenta on pitocin gtt. Will observe for 1 additional hour. If bleeding decreases, will discharge home 04/09/18 13:33 Pt passed two large clots. Discussed case with Dr. Gonzales, will continue to observe pt due to persistent bleeding on pitocin gtt in ED. 04/09/18 15:49 Pt with less vaginal bleeding off pitocin gtt. VSS, pain well controlled. Denies lightheadness or dizziness. Will discharge home per Dr. Gonzales with outpt f/u. 04/09/18 17:02 *DC/Admit/Observation/Transfer Diagnosis at time of Disposition: Placenta previa Qualifiers: Trimester: second trimester Qualified Code(s): O44.02 - Complete placenta previa NOS or without hemorrhage, second trimester - Discharge Dispostion Disposition: HOME Condition at time of disposition: Good Decision to Admit order: No - Referrals Referrals: Vandana Ridley MD [Primary Care Provider] - Kitty Gonzales MD [Staff Physician] - - Patient Instructions Printed Discharge Instructions: Miscarriage Additional Instructions: drink plenty of fluids. follow up with DR Gonzales. see referral for information. return for heavy bleeding, headache. fever, or any concerns. you can take ibuprofen 400 mg every 8 hrs as needed for pain. - Post Discharge Activity
[2018-04-09] MEDS ORDERED: OXYTOCIN 20 UNITS in 0.9% NS 20 UNIT/1,000 ML INFUS.BAG IV ONE (10:06)
[2018-04-09] MEDS ORDERED: OXYTOCIN 10 UNITS/ML VIAL ONE (10:19)
--- NOTE | 2018-04-09 11:03 | CON.OBG ---
Consult Consult Specialty:: WRAP YARN SORTER Reason for Consultation:: Retained placenta - History of Present Illness Chief Complaint: Status post delivery of a 16 weeks gestation History of Present Illness: 37 yo transferred from [facility] after delivery of a 16 weeks gestation with retained placenta. There's no vaginal bleeding nor abdominal cramps. - History Source History Provided By: Patient Limitations to Obtaining History: No Limitations - Past Medical History ...LMP: 12/22/17 ...: 5 ...Para: 3 - Past Surgical History Past Surgical History: Yes: None - Alcohol/Substance Use Hx Alcohol Use: No - Smoking History Smoking history: Never smoked Have you smoked in the past 12 months: No - Social History History of Recent Travel: No Home Medications - Allergies Allergies/Adverse Reactions: Allergies Allergy/AdvReac Type Severity Reaction Status Date / Time No Known Allergies Allergy Verified 04/04/18 16:07 - Home Medications Home Medications: Ambulatory Orders 54/Iron/Folic AC/Omg3 [Pr Nanci 430 Combo Pack] 1 each PO DAILY #30 combo..pkg 02/02/18 Cephalexin [Keflex] 500 mg PO BID #10 capsule 04/04/18 Family Disease History - Family Disease History Family History: Unremarkable Review of Systems - Review of Systems Constitutional: reports: No Symptoms Eyes: reports: No Symptoms HENT: reports: No Symptoms Neck: reports: No Symptoms Cardiovascular: reports: No Symptoms Respiratory: reports: No Symptoms Gastrointestinal: reports: No Symptoms Breasts: reports: No Symptoms Reported Musculoskeletal: reports: No Symptoms Integumentary: reports: No Symptoms Neurological: reports: No Symptoms Endocrine: reports: No Symptoms Hematology/Lymphatic: reports: No Symptoms Psychiatric: reports: No Symptoms Pain Intensity: 1 Physical Exam-FARMWORKER ANIMAL Vital Signs: Vital Signs Temperature 98.5 F 04/09/18 09:35 Pulse Rate 114 H 04/09/18 09:35 Respiratory Rate 20 04/09/18 09:35 Blood Pressure 138/90 04/09/18 09:35 O2 Sat by Pulse Oximetry (%) 100 04/09/18 09:35 Constitutional: Yes: Well Nourished Eyes: Yes: Conjunctiva Clear HENT: Yes: Atraumatic Neck: Yes: Supple Cardiovascular: Yes: Regular Rate and Rhythm Respiratory: Yes: Regular Gastrointestinal: Yes: Normal Bowel Sounds External Genitalia: Yes: Normal Vaginal Exam: No: Bleeding Cervix: Yes: Other (open, cord at cervical os) Uterus: Yes: Boggy Musculoskeletal: Yes: WNL Extremities: Yes: WNL Neurological: Yes: Alert, Oriented ...Motor Strength: WNL Psychiatric: Yes: Alert, Oriented Problem List - Problems (1) Retained placenta Code(s): O73.0 - RETAINED PLACENTA WITHOUT HEMORRHAGE Assessment/Plan Status post delivery of a 16 weeks fetus Retained placenta Start Pitocin Anticipate delivery of placenta
[2018-04-09] MEDS ORDERED: SODIUM CHLORIDE 0.9% 1000 ML INFUS.BAG IV ONE (12:19)
[2018-04-09 17:21] VITALS: BP 117/73; PULSE 98
== END 2018-04-09 17:21 | disposition home or self-care (01) ==
LOC: JER 09:24
PROC: 3E033VJ Introduction of Other Hormone into Peripheral Vein, Percutaneous Approach (ICD-10-PCS; principal; 2018-04-09)
DX: O26.892 Other specified pregnancy related conditions, second trimester (principal); O44.02 Complete placenta previa NOS or without hemorrhage, second trimester; O73.0 Retained placenta without hemorrhage; Z3A.16 16 weeks gestation of pregnancy
CPT/HCPCS: 96365; 96366; 99283-25; J7030

== ENCOUNTER 2018-04-21 08:10 | Day surgery (SDC) | payer OTHER ==
[~2018-04-21 08:10] MED LIST: ceFAZolin SODIUM 1 GM VIAL IVPB ONE
--- NOTE | 2018-04-21 08:13 | PDOC ---
History of Present Illness <Lucas Alamo - Last Filed: 04/21/18 09:12> - History of Present Illness Initial Comments: 04/21/18 08:17 Vitor is a 37 yo [id number] female previously seen 04/09/18 for retained placenta / placenta previa after miscarriage at [facility] 3 weeks ago and subsequent presentation with pitocin drip and discharge for outpatient RUNNING SPECIALIST f/u after noted passage of placenta who presents for evaluation of heavy bleeding times 1 day. She was evaluated on the 5th outpatient and told she required no further follow-up, however presents after episode of large volume bleeding this morning after only minimal daily spotting since her last appointment. The patient denies chest pain, shortness of breath, headache and dizziness. Denies fever, chills, nausea, vomit, diarrhea and constipation. Denies dysuria, frequency, urgency and hematuria. Allergies: NKDA <Salomon Venegas - Last Filed: 04/21/18 12:18> - General Stated Complaint: Vaginal Bleeding Time Seen by Provider: 04/21/18 08:13 Past History <Lucas Alamo - Last Filed: 04/21/18 09:12> - Past Medical History COPD: No DVT: No - Reproductive History (#): 5 Para: 5 - Suicide/Smoking/Psychosocial Hx Smoking History: Never smoked Have you smoked in the past 12 months: No Hx Alcohol Use: No Drug/Substance Use Hx: No Substance Use Type: None <Salomon Venegas - Last Filed: 04/21/18 12:18> - Past Medical History Allergies/Adverse Reactions: Allergies Allergy/AdvReac Type Severity Reaction Status Date / Time No Known Allergies Allergy Verified 04/04/18 16:07 Home Medications: Ambulatory Orders NK [No Known Home Medication] 04/21/18 Review of Systems - Review of Systems Comments:: 04/21/18 08:42 GENERAL/CONSTITUTIONAL: No fever or chills. No weakness. HEAD, EYES, EARS, NOSE AND THROAT: No change in vision. No ear pain or discharge. No sore throat. CARDIOVASCULAR: No chest pain or shortness of breath RESPIRATORY: No cough, wheezing, or hemoptysis. GASTROINTESTINAL: No nausea, vomiting, diarrhea or constipation. GENITOURINARY: +Vaginal bleeding as described. No dysuria, frequency, or change in urination. MUSCULOSKELETAL: No joint or muscle swelling or pain. No neck or back pain. SKIN: No rash NEUROLOGIC: No headache, vertigo, loss of consciousness, or change in strength/ sensation. ENDOCRINE: No increased thirst. No abnormal weight change HEMATOLOGIC/LYMPHATIC: No anemia, easy bleeding, or history of blood clots. ALLERGIC/IMMUNOLOGIC: No hives or skin allergy. <Salomon Venegas - Last Filed: 04/21/18 12:18> *Physical Exam - Vital Signs Last Vital Signs Temp Pulse Resp BP Pulse Ox 93.0 F L 122 H 18 139/84 100 04/21/18 08:10 04/21/18 08:10 04/21/18 08:10 04/21/18 08:10 04/21/18 08:10 <Lucas Aalmo - Last Filed: 04/21/18 09:12> - Physical Exam Comments: 04/21/18 08:43 GENERAL: Awake, alert, and fully oriented, in no acute distress HEAD: No signs of trauma, normocephalic, atraumatic EYES: PERRLA, EOMI, sclera anicteric, conjunctiva clear ENT: Auricles normal inspection, hearing grossly normal, nares patent, oropharynx clear without exudates. Moist mucosa NECK: Normal ROM, supple, no lymphadenopathy, JVD, or masses LUNGS: No distress, speaks full sentences, clear to auscultation bilaterally HEART: Regular rate and rhythm, normal S1 and S2, no murmurs, rubs or gallops, peripheral pulses normal and equal bilaterally. ABDOMEN: Soft, nontender, normoactive bowel sounds. No guarding, no rebound. No masses EXTREMITIES: Normal inspection, Normal range of motion, no edema. No clubbing or cyanosis. NEUROLOGICAL: Cranial nerves II through XII grossly intact. Normal speech, normal gait, no focal sensorimotor deficits SKIN: Warm, Dry, normal turgor, no rashes or lesions noted. : Os fingertip width open, soft. Significant blood in vaginal vault. Patient passed large clots just prior to evaluation. <Salomon Venegas - Last Filed: 04/21/18 12:18> ED Treatment Course - LABORATORY CBC & Chemistry Diagram: 04/21/18 08:00 04/21/18 08:00 - ADDITIONAL ORDERS Additional order review: 04/21/18 08:00 RBC 2.72 L D MCV 86.3 MCHC 33.0 RDW 13.9 MPV 8.1 Neutrophils % 71.1 Lymphocytes % 22.8 D Monocytes % 5.0 Eosinophils % 0.8 D Basophils % 0.3 <Lucas Alamo - Last Filed: 04/21/18 09:12> - LABORATORY CBC & Chemistry Diagram: 04/21/18 08:00 04/21/18 08:00 <Salomon Venegas - Last Filed: 04/21/18 12:18> Medical Decision Making - Medical Decision Making 04/21/18 09:13 37yF <Lucas Alamo - Last Filed: 04/21/18 09:12> - Medical Decision Making Tuesday is a 37 yo female w/ pmh as described who presents for evaluation of vaginal bleeding in the setting of prior noted placenta previa. 04/21/18 10:18 Patient had 2 episodes of non-responsiveness suspected to be vasal-vagal episodes coinciding with passage of large clots. 2L NS given for lowered BP. 2mg morphine given for symptomatic relief of pelvic pain. 04/21/18 10:20 Patient's RUNNING SPECIALIST (Christian) paged for consult. 2 units blood ordered for noted anemia. 1 unit O- for emergent administration and 1 unit cross-matched. 04/21/18 10:[address] Gonzales who suggested contacting RUNNING SPECIALIST senior economist for faster evaluation. Dr. Max paged. 04/21/18 11:[address] Max who suggested Pitocin IV in LR and will discuss case with Dr. Gonzales. 04/21/18 11:43 Dr. Max evaluated and will take to OR for retained POC. Also recommended additional 2 units PRBC's and 0.2 Methergine IM. Will administer. 04/21/18 11:45 Patient admitted and will go to ER later today. <Salomon Venegas - Last Filed: 04/21/18 12:18> *DC/Admit/Observation/Transfer <Lucas Alamo - Last Filed: 04/21/18 09:12> - Discharge Dispostion Decision to Admit order: Yes <Salomon Venegas - Last Filed: 04/21/18 12:18> Diagnosis at time of Disposition: Retained products of conception
[2018-04-21 08:21] VITALS: BMI 30.9
[2018-04-21] MEDS ORDERED: SODIUM CHLORIDE 1,000 ML IV STA ×2 (08:44→10:15)
[2018-04-21 09:02] LABS: BASO % 0.3 % (0-2.0); EOS % 0.8 % (0-4.5); HEMATOCRIT 23.5 % (32.4-45.2); HEMOGLOBIN 7.8 GM/dL (10.7-15.3); LYMPH % 22.8 % (8-40); MCH 28.5 pg (25.7-33.7); MEAN CELL VOLUME 86.3 fl (80-96); MEAN PLT VOLUME 8.1 fl (7.5-11.1); NEUT % 71.1 % (42.8-82.8); PLATELET COUNT 388 K/MM3 (134-434); RBC 2.72 M/mm3 (3.60-5.2); RDW 13.9 % (11.6-15.6); WHITE BLOOD COUNT 13.9 K/mm3 (4.0-10.0)
--- NOTE | 2018-04-21 09:25 | PDOC ---
Attending Attestation - Resident Resident Name: Salomon Venegas - ED Attending Attestation I have performed the following: I have examined & evaluated the patient, The case was reviewed & discussed with the resident, I agree w/resident's findings & plan, Exceptions are as noted - HPI HPI: 04/21/18 09:25 37y F A female hx of placeta previa s/p miscarraige, seen here on 04/09, started on pitocin drip with pasage of placental products, has been having spotting the past 2 weeks, but started to have mild suprapubic pain and increased bleeding today. On presentation the pt was noted to be mildly tachycardic. She also had an episode passing blood clots through her cervix here , she also was noted to be pale/diaphoretic and had a brief syncopal episode upon arrival. Her os was fingertip open abd noted for mlid suprapublic tenderness suspect possible retained products will ck type & screen, cbc to r/o anemia will obtain US to r/o retained products will discuss with obgyn pt placed on watchmaking teacher and moved to a regular room for monitoring. - Physicial Exam PE: 04/22/18 07:44 see above - Medical Decision Making 04/21/18 11:40 hbg noted at 7.8 - approx 4 pts lower than 2 weeks ago US noted for clots vs retained products. pts bp remains borderline hypotensive pts tachycardia from presentation improved to the 80s pt also has been having multiple episodes of syncope - typically when she is passing a clot, she would become diaphoretic, note she is feeeling dizzy with a whooshing sound in her hear, then sympoms would resolve. pt getting fluids, also getting blood for her symptoms - was written 1u of Onegative due to being unstable. case was dw dr. jackson - who came to the ED to evaluate the patient and plans on taking her to the OR for suspected retain products CRITICAL CARE DOCUMENTATION: I spent ~45 minutes of Critical Care time, excluding separately billable procedures, involving high complexity decision making to assess, manipulate and support vital system function(s) to treat single or multiple vital organ system failure and/or to prevent further life threatening deterioration of the patient' s condition.
[2018-04-21 09:33] LABS: ALBUMIN 2.7 g/dl (3.4-5.0); ANION GAP 13 (8-16); BLOOD UREA NITROGEN 9 mg/dL (7-18); CHLORIDE 108 mmol/L (98-107); CO2 18 mmol/L (21-32); GLUCOSE,RANDOM 139 mg/dL (74-106); POTASSIUM 3.8 mmol/L (3.5-5.1); SODIUM 139 mmol/L (136-145)
[2018-04-21 09:39] LABS: ALK PHOS 76 U/L (45-117); BILIRUBIN,TOTAL 0.2 mg/dL (0.2-1.0); CREATININE 0.7 mg/dL (0.55-1.02); SGOT/AST 13 U/L (15-37); SGPT/ALT 19 U/L (12-78); TOT PROT 6.5 g/dl (6.4-8.2)
[2018-04-21] MEDS ORDERED: ACETAMINOPHEN 1000 MG/100 ML VIAL (NON FORMULARY) IVPB ONE (09:50)
[2018-04-21] MEDS ORDERED: ACETAMINOPHEN INJECTION 100 ML IVPB ONE (10:14)
[2018-04-21] MEDS ORDERED: morphine CARPU-JECT 2 MG/1 ML DISP.SYRIN IVPUSH ONE (10:15)
[2018-04-21] MEDS ORDERED: MORPHINE SULFATE 2 MG/ML VIAL ONE ×2 (10:18→11:17)
[2018-04-21] MEDS ORDERED: D5W-LR W/ 20 UNITS OXYTOCIN 20 UNIT/1,000 ML INFUS.BAG IV ONE (10:57)
[2018-04-21] MEDS ORDERED: OXYTOCIN 10 UNITS/ML VIAL ONE (11:02)
[2018-04-21] MEDS ORDERED: METHYLERGONOVINE MALEATE 0.2 MG/1 ML AMP IM ONE (11:41)
[2018-04-21] MEDS ORDERED: PROPOFOL 20 ML ONE (12:50)
--- NOTE | 2018-04-21 12:50 | HP ---
Past Medical History - Primary Care Physician PCP:: Medhat Max - Admission Chief Complaint: retained POC , for D&C History of Present Illness: 37 yo f with hx of placenta previa, s/p spontaneous , seen in [facility] ER with retained POC , later was seen in [facility] er with vaginal bleeding seen and evaluated by Dr Bone , was given pitocin ,bleeding had stopped , was d/c home to follow up in clinic , patient returned today with in er with heavy vaginal bleeding and passing clots, was hypotensive ,recived transfusion ,i was called to eavluate patient , exam in ER showed bleeding moderatly with POC felt at cervical OS , now admitted for suction curettage, risks of procedure discussed via gear technician, will go for D&C as soon as vs stablize and transfusion completed History Source: Patient Limitations to Obtaining History: Language Barrier - Past Medical History ...: 6 ...Para: 4 Heme/Onc: Yes: Anemia - Past Surgical History Past Surgical History: Yes: None Hx Myomectomy: No Hx Transabdominal Cerclage: No - Smoking History Smoking history: Never smoked Have you smoked in the past 12 months: No - Alcohol/Substance Use Hx Alcohol Use: No - Social History History of Recent Travel: No Home Medications - Allergies Allergies/Adverse Reactions: Allergies Allergy/AdvReac Type Severity Reaction Status Date / Time No Known Allergies Allergy Verified 04/04/18 16:07 - Home Medications Home Medications: Ambulatory Orders Ferrous Sulfate 325 mg PO TID #90 tablet 04/21/18 Ibuprofen [Motrin -] 600 mg PO TID #21 tablet 04/21/18 Review of Systems - Review of Systems Constitutional: reports: Lethargy, Malaise Eyes: reports: No Symptoms HENT: reports: No Symptoms Neck: reports: No Symptoms Cardiovascular: reports: No Symptoms Respiratory: reports: No Symptoms Gastrointestinal: reports: No Symptoms Genitourinary: reports: No Symptoms, Vaginal Bleeding Breasts: reports: No Symptoms Reported Musculoskeletal: reports: No Symptoms Integumentary: reports: No Symptoms Neurological: reports: No Symptoms Endocrine: reports: No Symptoms Hematology/Lymphatic: reports: No Symptoms Psychiatric: reports: No Symptoms Physical Exam-BRAND ADVOCATE Vital Signs: Vital Signs Temperature 98.9 F 04/21/18 12:36 Pulse Rate 75 06/15/18 12:36 Respiratory Rate 16 04/21/18 12:36 Blood Pressure 110/68 04/21/18 12:36 O2 Sat by Pulse Oximetry (%) 100 04/21/18 12:36 Constitutional: Yes: Obese, Pallor Eyes: Yes: WNL HENT: Yes: WNL Neck: Yes: WNL Cardiovascular: Yes: WNL Respiratory: Yes: WNL Gastrointestinal: Yes: WNL ...Rectal Exam: Yes: WNL Renal/: Yes: WNL Pelvis: Yes: WNL External Genitalia: Yes: Bleeding Vaginal Exam: Yes: Normal Cervix: Yes: Other (open, poc seen inOS) Uterus: Yes: Enlarged Breast(s): Yes: WNL, Gynecomastia Musculoskeletal: Yes: WNL Extremities: Yes: WNL Labs: CBC, BMP 04/21/18 08:00 04/21/18 08:00 Problem List - Problem (1) Retained products of conception Code(s): [id number] - (2) Retained placenta Code(s): O73.0 - RETAINED PLACENTA WITHOUT HEMORRHAGE (3) Anemia Code(s): D64.9 - ANEMIA, UNSPECIFIED Qualifiers: Anemia type: iron deficiency Iron deficiency anemia type: chronic blood loss Qualified Code(s): D50.0 - Iron deficiency anemia secondary to blood loss (chronic) Assessment/Plan paln suction D&C , risks discussed
[2018-04-21] MEDS ORDERED: MIDAZOLAM HCL 2 MG/2 ML SINGLE DOSE VIAL ONE (12:51)
[2018-04-21] MEDS ORDERED: ceFAZolin SODIUM 1 GM VIAL ONE (13:46)
[2018-04-21] MEDS ORDERED: SODIUM CHLORIDE 0.9% P/F 10 ML VIAL IJ ONE (13:46)
[2018-04-21] MEDS ORDERED: ceFAZolin SODIUM 1 GM VIAL IVPB ONE (13:47)
[2018-04-21] MEDS ORDERED: PHENYLEPHRINE HCL 10 MG/1 ML SINGLE DOSE VIAL ONE (13:53)
[2018-04-21 14:54] LABS: BASO % 0.3 % (0-2.0); HEMATOCRIT 25.9 % (32.4-45.2); HEMOGLOBIN 8.5 GM/dL (10.7-15.3); LYMPH % 7.8 % (8-40); MCH 28.1 pg (25.7-33.7); MCHC 32.8 g/dl (32.0-36.0); MEAN CELL VOLUME 85.7 fl (80-96); MEAN PLT VOLUME 8.3 fl (7.5-11.1); MONO % 2.6 % (3.8-10.2); NEUT % 89.3 % (42.8-82.8); PLATELET COUNT 283 K/MM3 (134-434); RBC 3.02 M/mm3 (3.60-5.2); RDW 14.8 % (11.6-15.6)
[2018-04-21] MEDS ORDERED: IBUPROFEN 600 MG TABLET (FP) PO PRN (16:15)
[2018-04-21] MEDS ORDERED: IBUPROFEN 800 MG/8 ML IJ IVPB PRN (16:15)
[2018-04-21] MEDS ORDERED: oxyCODONE HCL 5 MG TABLET PO PRN (16:15)
[2018-04-21] MEDS ORDERED: ONDANSETRON 4 MG/2 ML VIAL IVPUSH PRN (16:15)
[2018-04-21] MEDS ORDERED: ELECTROLYTE-148 SOLN 1,000 ML IV SCH (16:30)
[2018-04-21 19:04] VITALS: BP 115/68; PULSE 94; TEMP 98.8
--- NOTE | 2018-04-21 21:58 | OP ---
DATE OF OPERATION: 04/21/2018 PREOPERATIVE DIAGNOSES: Retained products of conception and hemorrhage, anemia. POSTOPERATIVE DIAGNOSES: Retained products of conception. PROCEDURE: Removal of products of conception and suction dilatation and curettage. SURGEON: Medhat Max MD ANESTHESIA: General. ANESTHESIOLOGIST: Nicholas Quigley MD ESTIMATED BLOOD LOSS: 200 mL intraoperatively. DESCRIPTION OF OPERATIVE PROCEDURE: Patient was taken to the operating room. Under adequate general anesthesia in dorsal lithotomy position, examination under anesthesia revealed there was blood in the vaginal vault. The cervix was open and with placenta-like tissue at the os. Uterus was approximately 12 weeks' size. Adnexa: No masses were palpable. Then, with a weighted speculum in the vagina, anterior lip of the cervix was grasped with the ring forceps, and then, products of conception were removed with polyp forceps, which appeared to be a piece of placenta. Then, suction curette was inserted into the uterine cavity and the contents were suctioned and all the blood clots were removed. At the end of the procedure, bleeding had stopped, and patient had tolerated the procedure well and left the OR in good condition. MEDHAT MAX M.D. [id number]
--- NOTE | 2018-04-25 15:49 | PATH ---
Surgical Pathology Report Patient Name: MADELINE RIVERA [facility]. Rec. #: [id number] /Age/Gender: 1980 (Age: 37) / F Account: [id number] Location: AMBULATORY SURG Taken: 04/21/2018 Received: 04/24/2018 Reported: 04/25/2018 Physicians: Medhat Max M.D. PHYSICIAN EMERGENCY DEPT Specimen(s) Received PRODUCTS OF CONCEPTION Clinical History Retained products of conception Final Diagnosis RETAINED PRODUCTS OF CONCEPTION: CHORIONIC VILLI AND DECIDUAL TISSUE WITH ACUTE DECIDUITIS, CONSISTENT WITH PRODUCTS OF CONCEPTION. Electronically Signed Carol Maddox M.D. Gross Description Received in formalin labeled "retained products of conception," is a 12.0 x 9.5 x 2.3 cm aggregate of red-brown soft tissue fragment admixed with blood clot. Villous tissue is identified. No somatic tissue is identified. A technical service representative portion is submitted in one cassette. 04/24/2018 [facility]04/24/2018
== END 2018-04-21 19:10 | disposition home or self-care (01) ==
LOC: JER 08:10 → JASUSAT 11:44
PROVIDERS: ATTEND Obstetrics & Gynecology
PROC: 30233N1 Transfusion of Nonautologous Red Blood Cells into Peripheral Vein, Percutaneous Approach (ICD-10-PCS; 2018-04-21)
PROC: 10D17ZZ Extraction of Products of Conception, Retained, Via Natural or Artificial Opening (ICD-10-PCS; principal; 2018-04-21 13:15)
DX: O03.1 Delayed or excessive hemorrhage following incomplete spontaneous abortion (principal); D64.9 Anemia, unspecified
CPT/HCPCS: 36415; 36430; 76830-TC; 80053; 83605; 85025; 86850; 86900; 86901; 86922; 88305-TC; 94760; 99284-25; J0131; J7030; P9038; P9058